=== PATIENT | male | born 1990 | race Caucasian/White ===

== ENCOUNTER 2017-11-04 19:00 | Emergency (ER) | payer SELFPAY ==
[~2017-11-04] VITALS: Ht 177.8 cm; Wt 127.0 kg
[~2017-11-04 19:00] MED LIST: ARIP10TA2 PO; BSP5T PO; CEPH500C PO; DCS100C PO; IBP600T1 PO; KETO75CA PO; NAPR-1071 PO; POLY17PO23 GT; SULF1TAB35 PO
--- NOTE | 2017-11-04 19:26 | ED EENT ---
History of Present Illness General Chief Complaint: Oral/Throat Problems Stated Complaint: SORE THROAT Source: patient Exam Limitations: no limitations History of Present Illness Date Seen by Provider: Nov 04, 2017 Time Seen by Provider: 19:24 Initial Comments To ER with sore throat for 2-3 days. Cough, body aches, shortness of breath and fever. He arrives per EMS after having gone to the police station to report the symptoms. EMS was called to the Police Department and they brought him here. Timing/Duration: abrupt Severity: moderate Associated Symptoms: cough, fever, sore throat Allergies and Home Medications Allergies Coded Allergies: codeine (Verified Allergy, Unknown, 04/16/13) Home Medications No Active Prescriptions or Reported Meds Review of Systems Constitutional: see HPI Eyes: No Symptoms Reported Ears: No Symptoms Reported Nose: no symptoms reported Mouth: no symptoms reported Throat: no symptoms reported Respiratory: see HPI, cough Cardiovascular: no symptoms reported Musculoskeletal: no symptoms reported Past Ocnsiux-Nchjst-Pdijgv Hx Patient Social History Alcohol Use: Rarely Uses Recreational Drug Use: Yes Drug of Choice: THC Smoking Status: Current Everyday Smoker Type Used: Cigarettes Recent Hopitalizations: No Immunizations Up To Date Tetanus Booster (TDap): Unknown Seasonal Allergies Seasonal Allergies: No Surgeries History of Surgeries: Yes Surgeries: Adenoidectomy, Tonsillectomy Respiratory History of Respiratory Disorde: No Cardiovascular History of Cardiac Disorders: Yes Cardiac Disorders: Hypertension Neurological History of Neurological Disord: No Reproductive System Hx Reproductive Disorders: No Gastrointestinal History of Gastrointestinal Di: Yes (OD of acetaminophen) Gastrointestinal Disorders: Liver Disease/Jaundice Musculoskeletal History of Musculoskeletal Dis: No Endocrine History of Endocrine Disorders: Yes Endocrine Disorders: Diabetes, Non-Insulin dep Cancer History of Cancer: No Psychosocial History of Psychiatric Problem: Yes Behavioral Health Disorders: ADD/ADHD, Anxiety, PTSD, Suicide Attempts, Bipolar , Schizophrenia, Depression Integumentary History of Skin or Integumenta: No Family Medical History Significant Family History: No Pertinent Family Hx Physical Exam Vital Signs Vital Sign - Last 12Hours 11/04/17 19:21 Temp 101.9 Resp 18 B/P (MAP) 185/106 (132) Pulse Ox 95 O2 Delivery Room Air General Appearance: WD/WN, no apparent distress Eyes: bilateral eye normal inspection, bilateral eye PERRL, bilateral eye EOMI Ears: bilateral ear auricle normal, bilateral ear canal normal, bilateral ear TM normal Mouth/Throat: normal mouth inspection, pharynx normal Neck: non-tender, full range of motion Cardiovascular: regular rate, rhythm, no murmur Respiratory: normal breath sounds, no respiratory distress, no accessory muscle use Neurologic/Psychiatric: alert, normal mood/affect, oriented x 3 Skin: normal color, warm/dry Progress/Results/Core Measures Results/Orders Lab Results Laboratory Tests Test 11/04/17 19:25 Range/Units Group A Streptococcus Screen NEGATIVE NEGATIVE Micro Results Microbiology 11/04/17 Influenza Types A,B Antigen (ROSENDA) - Final, Complete My Orders Orders - LASHON JUAN APRN Rapid Strep A Screen (11/04/17 19:24) Influenza A And B Antigens (11/04/17 19:24) Vital Signs/I&O Vital Sign - Last 12Hours 11/04/17 19:21 Temp 101.9 Resp 18 B/P (MAP) 185/106 (132) Pulse Ox 95 O2 Delivery Room Air Departure Impression Impression: Primary Impression: Influenza A Disposition: 01 HOME, SELF-CARE Condition: Stable Departure-Patient Inst. Decision time for Depature: 19:26 Referrals: NO,LOCAL PHYSICIAN (PCP/Family) Primary Care Physician Patient Instructions: Flu Add. Discharge Instructions: 1. Rest, Tylenol and Motrin, DayQuil NyQuil. Drink plenty of fluids. All discharge instructions reviewed with patient and/or family. Voiced understanding. Scripts No Active Prescriptions or Reported Meds LASHON JUAN APRN Nov 04, 2017 19:26
[2017-11-04 19:58] VITALS: BP 171/101
== END 2017-11-04 19:58 | disposition home or self-care (01) ==
LOC: EDUNIT# 19:00 → ER 19:02
DX: J10.1 Influenza due to other identified influenza virus with other respiratory manifestations (principal); F90.9 Attention-deficit hyperactivity disorder, unspecified type; F41.9 Anxiety disorder, unspecified; F20.9 Schizophrenia, unspecified; I10 Essential (primary) hypertension; E11.9 Type 2 diabetes mellitus without complications; F31.9 Bipolar disorder, unspecified; F17.210 Nicotine dependence, cigarettes, uncomplicated; F12.10 Cannabis abuse, uncomplicated; Z91.5 Personal history of self-harm; Z87.19 Personal history of other diseases of the digestive system; Z88.5 Allergy status to narcotic agent; Z90.89 Acquired absence of other organs
CPT/HCPCS: 87430; 87804; 99282

== ENCOUNTER 2021-02-28 02:53 | Emergency (ER) | payer SELFPAY ==
[~2021-02-28] VITALS: Ht 180 cm; Wt 156.5 kg
[2021-02-28] MEDS ORDERED: fentaNYL INJ 100 MCG/2 ML AMP IVP STA (03:04)
[2021-02-28 03:18] LABS: BASOPHILS % (AUTO) 0 % (0-10); EOSINOPHILS # (AUTO) 0.2 10^3/uL (0.0-0.3); EOSINOPHILS % (AUTO) 2 % (0-10); HEMATOCRIT 40 % (40-54); HEMOGLOBIN 13.6 g/dL (13.3-17.7); LYMPHOCYTES # (AUTO) 3.3 10^3/uL (1.0-4.0); LYMPHOCYTES % (AUTO) 33 % (12-44); MEAN CORPUSCULAR HEMOGLOBIN 32 pg (25-34); MEAN CORPUSCULAR HGB CONC 34 g/dL (32-36); MEAN CORPUSCULAR VOLUME 95 fL (80-99); MEAN PLATELET VOLUME 10.9 fL (9.0-12.2); MONOCYTES # (AUTO) 0.8 10^3/uL (0.0-1.0); MONOCYTES % (AUTO) 8 % (0-12); NEUTROPHILS # (AUTO) 5.7 10^3/uL (1.8-7.8); NEUTROPHILS % (AUTO) 57 % (42-75); PLATELET COUNT 206 10^3/uL (130-400)
--- NOTE | 2021-02-28 03:24 | ED Chest Pain ---
General Chief Complaint: Chest Pain Stated Complaint: BACK PAIN / CP Source: patient Exam Limitations: no limitations History of Present Illness Date Seen by Provider: February 28, 2021 Time Seen by Provider: 02:58 Initial Comments Here with report of severe back pain that radiates to his chest that he describes as sharp. It is in the midline in the upper back. He took 12 extra strength Tylenol last 3 to 4 hours per report he gave to EMS. He did that for the back pain. States that it is not helping. Denies nausea or vomiting. Blood pressure noted to be quite high by EMS and reportedly has had high blood pressure for the last 6 years. States that he is post to be on a medicine but cannot afford it so is not taking any. Patient took a hot shower to try to help with the pain and that did not. Ultimately EMS summoned when pain became so severe that he began to get short of breath. Denies any recent injury. Denies illness symptoms. Patient did have diaphoresis. Timing/Duration: 1-3 hours Severity/Quality: moderate, severe Location: central Radiation: neck, back Activities at Onset: none Prior CP/Workup: no prior cardiac workup ASA po SOAP INSPECTOR: No NTG SL SOAP INSPECTOR: No Associated Symptoms: No abdominal pain; back pain, diaphoresis; No fever/chills, No nausea/vomiting, No shortness of breath, No syncope, No weakness Allergies and Home Medications Allergies Coded Allergies: codeine (Verified Allergy, Unknown, 04/16/13) Home Medications Metoprolol Tartrate 50 Mg Tablet, 50 MG PO BID Prescribed by: KAY VILLASEÑOR on 02/28/21 1898 Patient Home Medication List Home Medication List Reviewed: Yes Review of Systems Review of Systems Constitutional: see HPI, fever EENTM: No Nose Pain, No Throat Pain Respiratory: Denies Cough; SOA With Exertion; Denies Wheezing Cardiovascular: Chest Pain; Denies Edema Gastrointestinal: Denies Nausea, Denies Vomiting Genitourinary: No Symptoms Reported Musculoskeletal: back pain, muscle pain Skin: no symptoms reported Psychiatric/Neurological: Anxiety; Denies Headache All Other Systems Reviewed Negative Unless Noted: Yes Past Bhxmamw-Nkajqe-Egryin Hx Past Med/Social Hx: Reviewed Nursing Past Med/Soc Hx Patient Social History Alcohol Use: Denies Use Drug of Choice: THC Smoking Status: Current Everyday Smoker Type Used: Cigarettes Recent Hopitalizations: No Immunizations Up To Date Tetanus Booster (TDap): Unknown Seasonal Allergies Seasonal Allergies: No Past Medical History Surgeries: Yes Adenoidectomy, Tonsillectomy Respiratory: No Cardiac: Yes Hypertension Neurological: No Reproductive Disorders: No Gastrointestinal: Yes (OD of acetaminophen) Liver Disease/Jaundice Musculoskeletal: No Endocrine: Yes Diabetes, Non-Insulin dep Cancer: No Psychosocial: Yes ADD/ADHD, Anxiety, PTSD, Suicide Attempts, Bipolar, Schizophrenia, Depression Integumentary: No Family Medical History Reviewed Nursing Family Hx No Pertinent Family Hx Physical Exam Vital Signs Vital Signs - First Documented 02/28/21 02:57 Temp 36.9 Pulse 85 Resp 22 B/P (MAP) 173/110 (131) O2 Delivery Room Air Capillary Refill : Height, Weight, BMI Height: 5'10" Weight: 280lbs. oz. [id number]; 33.96 BMI Method:Stated General Appearance: No Apparent Distress, Anxious, Mild Distress HEENT: PERRL/EOMI, Pharynx Normal Neck: Non Tender, Supple Respiratory: Lungs Clear, Normal Breath Sounds, Other (Tender central anterior chest wall and posterior chest wall near spine.) Cardiovascular: Regular Rate, Rhythm, No Murmur Gastrointestinal: Non Tender, Soft Extremity: Normal Range of Motion, Non Tender Neurologic/Psychiatric: Alert, Oriented x3 Skin: Normal Color, Warm/Dry Progress/Results/Core Measures Results/Orders Lab Results Laboratory Tests Test 02/28/21 03:10 02/28/21 05:05 Range/Units White Blood Count 10.0 4.3-11.0 10^3/uL Red Blood Count 4.23 L 4.30-5.52 10^6/uL Hemoglobin 13.6 13.3-17.7 g/dL Hematocrit 40 40-54 % Mean Corpuscular Volume 95 80-99 fL Mean Corpuscular Hemoglobin 32 25-34 pg Mean Corpuscular Hemoglobin Concent 34 32-36 g/dL Red Cell Distribution Width 12.4 10.0-14.5 % Platelet Count 206 130-400 10^3/uL Mean Platelet Volume 10.9 9.0-12.2 fL Immature Granulocyte % (Auto) 1 % Neutrophils (%) (Auto) 57 42-75 % Lymphocytes (%) (Auto) 33 12-44 % Monocytes (%) (Auto) 8 0-12 % Eosinophils (%) (Auto) 2 0-10 % Basophils (%) (Auto) 0 0-10 % Neutrophils # (Auto) 5.7 1.8-7.8 10^3/uL Lymphocytes # (Auto) 3.3 1.0-4.0 10^3/uL Monocytes # (Auto) 0.8 0.0-1.0 10^3/uL Eosinophils # (Auto) 0.2 0.0-0.3 10^3/uL Basophils # (Auto) 0.0 0.0-0.1 10^3/uL Immature Granulocyte # (Auto) 0.1 0.0-0.1 10^3/uL Prothrombin Time 11.4 L 12.2-14.7 SEC INR Comment 0.8 0.8-1.4 Activated Partial Thromboplast Time 25 24-35 SEC D-Dimer 0.34 0.00-0.49 UG/ML Sodium Level 141 135-145 MMOL/L Potassium Level 4.0 3.6-5.0 MMOL/L Chloride Level 106 98-107 MMOL/L Carbon Dioxide Level 20 L 21-32 MMOL/L Anion Gap 15 H 5-14 MMOL/L Blood Urea Nitrogen 16 7-18 MG/DL Creatinine 1.11 0.60-1.30 MG/DL Estimat Glomerular Filtration Rate > 60 BUN/Creatinine Ratio 14 Glucose Level 150 H 70-105 MG/DL Calcium Level 9.7 8.5-10.1 MG/DL Corrected Calcium 9.5 8.5-10.1 MG/DL Magnesium Level 2.1 1.6-2.4 MG/DL Total Bilirubin 0.3 0.1-1.0 MG/DL Aspartate Amino Transf (AST/SGOT) 22 5-34 U/L Alanine Aminotransferase (ALT/SGPT) 68 H 0-55 U/L Alkaline Phosphatase 66 40-136 U/L Myoglobin 53.7 10.0-92.0 NG/ML Troponin I < 0.028 < 0.028 <0.028 NG/ML Total Protein 6.4 6.4-8.2 GM/DL Albumin 4.2 3.2-4.5 GM/DL Lipase 43 8-78 U/L Acetaminophen Level 12 10-30 UG/ML My Orders Orders - KAY VILLASEÑOR MD Acetaminophen (02/28/21 03:04) Cbc With Automated Diff (02/28/21 03:04) Magnesium (02/28/21 03:04) Chest 1 View, Ap/Pa Only (02/28/21 03:04) Ekg Tracing (02/28/21 03:04) Comprehensive Metabolic Panel (02/28/21 03:04) Myoglobin Serum (02/28/21 03:04) Protime With Inr (02/28/21 03:04) Partial Thromboplastin Time (02/28/21 03:04) O2 (02/28/21 03:04) Monitor-Rhythm Ecg Trace Only (02/28/21 03:04) Lipid Panel (03/01/21 06:00) Ed Iv/Invasive Line Start (02/28/21 03:04) Lipase (02/28/21 03:04) Troponin I (02/28/21 03:04) Fentanyl Inj (Sublimaze Injection) (02/28/21 03:04) Fibrin Degradation Products (02/28/21 03:10) Metoprolol Succinate (Xl) Tab (Toprol Xl (02/28/21 03:30) Troponin I (02/28/21 04:54) Famotidine Injection (Pepcid Injection) (02/28/21 05:04) Medications Given in ED Current Medications Medications Dose Ordered Sig/June Route Start Time Stop Time Status Last Admin Dose Admin Metoprolol Succinate 100 mg ONCE ONCE PO 02/28/21 03:30 02/28/21 03:31 DC 02/28/21 04:23 100 MG Vital Signs/I&O 02/28/21 02:57 Temp 36.9 Pulse 85 Resp 22 B/P (MAP) 173/110 (131) O2 Delivery Room Air Progress Progress Note : Progress Note Seen and evaluated. Chest pain protocol plus D-dimer initiated. Fentanyl 75 mcg IV. Monitor patient. 0320: Pain from 11 down to a 4. Overall feeling better. Monitor patient. Toprol-XL 100 mg p.o. ordered. 0505: Overall 100% better and blood pressure is now in a much better range in the 120s over 70s. Patient admits that he was eating banana peppers and other spicy food tonight this may have precipitated his pain. He does admit to severe acid reflux. We will recheck his troponin now. We did discuss outpatient treatment and he states that he will be able to get medicines now. He will follow-up with [facility]. He reports that he is going to quit smoking as well. Overall he feels much better. Monitor patient. 0541: Remained stable and better. Discharged home with return precautions. Patient verbalized understanding of instructions and agreement with plan. Initial ECG Impression Date: February 28, 2021 Initial ECG Impression Time: 02:59 Initial ECG Rate: 77 Initial ECG Rhythm: Normal Sinus Initial ECG Impression: Normal Initial ECG Comparisson: Unchanged Comment Sinus rhythm with normal axis. No evidence of ST elevation DC. Similar to previous of 04/16/2013. Interpreted by me. Diagnostic Imaging Diagonstic Imaging: Xray Plain Films/CT/US/NM/MRI: chest Comments No acute findings on 1 view chest x-ray Reviewed: Reviewed by Me Departure Impression Primary Impression: Chest pain Qualified Codes: R07.9 - Chest pain, unspecified Additional Impression: Gastroesophageal reflux disease Qualified Codes: K21.9 - Gastro-esophageal reflux disease without esophagitis Disposition: 01 HOME, SELF-CARE Condition: Improved Departure-Patient Inst. Decision time for Depature: 05:40 Referrals: NO,LOCAL PHYSICIAN (PCP/Family) Primary Care Physician Patient Instructions: Chest Pain (DC), Acid Reflux and GERD in Adults (DC) Add. Discharge Instructions: All discharge instructions reviewed with patient and/or family. Voiced understanding. You should stop smoking. Refrain from spicy foods for a while. You may take [id number] Pepcid or the generic famotidine 20 mg once or twice daily as needed for acid reflux symptoms. It is very important that you treat your blood pressure. Take medications as directed. It is very important that you follow- up with your doctor for recheck and further evaluation and for monitoring of your blood pressure. Return for worse pain, fever, vomiting, weakness, breathing problems or other concerns as needed. You should monitor and record your blood pressure daily and take this to your doctor's appointment. Scripts Metoprolol Tartrate (Metoprolol Tartrate) 50 Mg Tablet 50 MG PO BID, #60 TAB 1 Refill Prov: KAY VILLASEÑOR MD 02/28/21 Copy Copies To 1: RADHA MCCONNELL TIMOTHY D MD February 28, 2021 03:24
[2021-02-28] MEDS ORDERED: meTOprolol SUCCINATE 100 MG (TOPROL XL) TAB PO ONE (03:30)
[2021-02-28 03:32] LABS: ALBUMIN 4.2 GM/DL (3.2-4.5); CHLORIDE 106 MMOL/L (98-107); SODIUM 141 MMOL/L (135-145)
[2021-02-28 03:33] LABS: CALCIUM 9.7 MG/DL (8.5-10.1)
[2021-02-28 03:34] LABS: GLUCOSE 150 MG/DL (70-105)
[2021-02-28 03:35] LABS: TOTAL PROTEIN 6.4 GM/DL (6.4-8.2)
[2021-02-28 03:36] LABS: BILIRUBIN,TOTAL 0.3 MG/DL (0.1-1.0); CARBON DIOXIDE 20 MMOL/L (21-32); FIBRIN DEGRADATION PRODUCTS 0.34 UG/ML (0.00-0.49); INR 0.8 (0.8-1.4); PROTHROMBIN TIME PATIENT 11.4 SEC (12.2-14.7)
[2021-02-28 03:38] LABS: ALKALINE PHOSPHATASE 66 U/L (40-136); CREATININE SERUM 1.11 MG/DL (0.60-1.30); GFR ESTIMATED > 60
[2021-02-28 03:39] LABS: BUN/CREATININE RATIO 14
[2021-02-28 03:41] LABS: ALANINE AMINOTRANSFERASE 68 U/L (0-55); MAGNESIUM 2.1 MG/DL (1.6-2.4)
[2021-02-28 03:42] LABS: ACETAMINOPHEN 12 UG/ML (10-30); LIPASE 43 U/L (8-78)
[2021-02-28] MEDS ORDERED: FAMOTIDINE 20MG/2ML IV (PEPCID) IV STA (05:04)
[2021-02-28] MEDS ORDERED: METO50TA15 PO (05:09)
[2021-02-28 05:55] VITALS: BP 145/94
--- NOTE | 2021-02-28 06:11 | Diagnostic Imaging Report ---
CHEST 1 VIEW, AP/PA ONLY Indication: Chest pain. Comparison: None available. Findings: No focal airspace disease in the visualized lungs. Please note that the posterior lower lobes are poorly evaluated by portable radiography. No pleural effusion or pneumothorax. Normal cardiomediastinal silhouette. Impression: 1. No acute cardiopulmonary process by portable radiography. Dictated by: Dictated on workstation # [id number]
== END 2021-02-28 05:56 | disposition home or self-care (01) ==
LOC: EDUNIT# 02:53 → ER 02:54
DX: R07.89 Other chest pain (principal); K21.9 Gastro-esophageal reflux disease without esophagitis; I10 Essential (primary) hypertension; E11.9 Type 2 diabetes mellitus without complications; F17.210 Nicotine dependence, cigarettes, uncomplicated
CPT/HCPCS: 71045; 80053; 83690; 83735; 83874; 84484; 85025; 85379; 85610; 85730; 93005; 93041; 99284; G0480; 36415; 80329